=== PATIENT | male | born 1985 | race African-American/Black ===

== ENCOUNTER 2021-07-29 08:09 | Emergency (ER) | payer SELFPAY ==
[~2021-07-29] VITALS: Ht 175.3 cm; Wt 68.0 kg
--- NOTE | 2021-07-29 08:20 | NUR ---
the [id number] overdose [place] unknown drug, narcan 4mg given on scene IVP. The patient is alert to self. In room air. Respiration regular and unlabored. Attached to the monitor. Warm blanket provided for comfort. Will continue to monitor the patient
--- NOTE | 2021-07-29 08:34 | NUR ---
The phlebatomist at the bedside
[2021-07-29 08:42] LABS: BASOPHILS % (AUTO) 0.2 % (0.0-2.0); EOSINOPHILS % (AUTO) 0.3 % (0.0-6.0); HEMATOCRIT 44 % (39-51); HEMOGLOBIN 14.1 g/dL (13.5-17.5); LYMPHOCYTES % (AUTO) 4.5 % (20.0-44.0); MEAN CORPUSCULAR HGB CONC 32 g/dl (31.0-36.0); MEAN CORPUSCULAR VOLUME 92 fL (80-96); MONOCYTES # (AUTO) 0.8 K/uL (0.1-1.30); MONOCYTES % (AUTO) 3.6 % (2.0-12.0); NEUTROPHILS # (AUTO) 19.8 K/uL (1.8-8.9); NEUTROPHILS % (AUTO) 91.4 % (43.0-81.0); PLATELET COUNT (AUTO) 254 K/uL (150-450); RED BLOOD CELL COUNT(AUTO) 4.74 MIL/uL (4.5-6.0); WHITE BLOOD COUNT (AUTO) 21.6 K/uL (4.3-11.0)
--- NOTE | 2021-07-29 08:55 | NUR ---
The patient does not want to give urine at this time. Willencourage again later.
[2021-07-29 08:56] LABS: ACETAMINOPHEN < 0 ug/ml (10-30); ALANINE AMINOTRANSFERASE 64 U/L (12-78); ALCOHOL, BLOOD < 3 mg/dL (0-0); ALKALINE PHOSPHATASE 111 U/L (46-116); ASPARTATE AMINOTRANSFERASE 114 U/L (15-37); BILIRUBIN,DIRECT 0.2 mg/dL (0.0-0.2); BILIRUBIN,TOTAL 0.4 mg/dL (0.2-1.0); CALCIUM, SERUM 8.8 mg/dL (8.5-10.1); CARBON DIOXIDE 27 mmol/L (21-32); CHLORIDE 108 mmol/L (98-107); CREATININE 1.9 mg/dL (0.6-1.3); GLUCOSE 92 mg/dL (74-106); SODIUM SERUM 147 mmol/L (136-145); TOTAL PROTEIN, SERUM 7.7 g/dL (6.4-8.2); UREA NITROGEN, BLOOD 25 mg/dL (7-18)
[2021-07-29 08:57] LABS: POTASSIUM 5.3 mmol/L (3.5-5.1)
[2021-07-29] MEDS ORDERED: PIPERACILLIN /TAZOBACTAM 3.375 G in IV D5W 50 ML IV ONE (10:00)
--- NOTE | 2021-07-29 12:54 | NUR ---
THE PATIENT SLEEPING IN BED. RESPONSIVE TO VERBAL STIMULI. RESPIRATION REGULAR AND UNLABORED. PATIENT IS IN NO APPARENT DISTRESS. REMAINS ATTACHED TO A MONITOR. WILL CONTINUE TO MONITOR THE PATIENT.
--- NOTE | 2021-07-29 14:47 | NUR ---
THE PATIENT SLEEPING. RESPIRATION EVEN AND UNLABORED. IN NO APPARENT DISTRESS. THE PATIENT IS RESPONSIVE TO VERBAL STIMULI. WILL CONTINUE TO MONITOR THE PATIENT.
--- NOTE | 2021-07-29 15:40 | NUR ---
"SS note: SS requested for overdose and homelessness. Pt is a 35-year-old, male. SW met with pt at his bedside in the emergency department. Pt was unarousable. Pt appeared well-groomed. Per chart, pt was brought in by ambulance on 07/29/21 for overdose. SW was unable to interview pt or assess the pt's need for community resources. SW notified TERRI Small that homeless resources and waiver would be filed in the pt's chart for follow up at a later time by ED cruise staff member. No further SS intervention at this time, however, SS will remain available as needed. RESOURCES FILED: Year-round shelters: [facility] [place] [address] [place] [address] ; [facility] [place] [address] [place] [address]; [facility] [id number] [facility]. [facility] [address] SPA 4 | [facility] [place] Provider: [facility] Serve Address: [address], [address] # of Beds: 48 Population Served: [facility] Provider: First to Serve Address: [address] [facility], [address] # of Beds: 73 Population Served: [facility] 6 | [facility] Provider: Home at Last Address: [address] [facility], [address] # of Beds: 63 Population Served: [facility] 3 | [facility] Provider: [facility] [place] Address: [address] [facility], [address] # of Beds: 75 Population Served: [facility] SPA 8 | [facility] Provider: [facility] [place] Address: [address] [facility], [address] # of Beds: 80 Population Served: [facility] SPA 1 | [facility] Provider: [facility] [place] Address: [address] [address], [address] # of Beds: 85 Population Served: [facility] SPA 2 | [facility] Provider: Magdalena ryan [facility] Address: Confidential (please call for location) # of Beds: 52 Population Served: [facility] SPA 4 | [facility] Provider: Jayleen Kaur Address: [address], [address] # of Beds: 49 Population Served: [facility] Provider: First To Serve Address: [address] [place] [address], [address] # of Beds: 27 Population Served: [facility] Hygiene: [facility]: [address] [facility] ; [facility] [facility] [address] [facility] ; [facility] [address] [facility] . Food Resources: [place] [facility] at [facility]- [address] [facility]; Meet Each Need with Dignity ([facility]) [address] [facility]; [facility] [address] [facility]; [facility] [address] [facility]. Mental Health resources provided: [facility] [address] [place], [place] [id number] ; [facility] [place] [address] [facility] [address], [place] [address] ; Shaye Segura [facility] [address] [place] [address] ; [facility] [address] [place], [place] [id number] Healthcare Clinics: [facility] [address] [address] [place]. [place] ; [facility] [address] [facility] [address] [place] [address]; [facility] [address] [place] [address]. [place] [phone] Counseling--Outpatient [facility] [address] [facility] [address] [place], [place] [address] (Specializes in in-depth psychotherapy for emotional distress: anxiety, depression, interpersonal conflicts, life transitions, childhood abuse) PSYCHIATRIC OUTPATIENT SERVICES [facility] Partial Hospitalization and Intensive Outpatient Program (Managed Care and [place] Only) [address] [facility] [id number] [facility] Partial Hospitalization and Outpatient Program [address] [place], [place] [id number] [facility] Partial Hospitalization and Outpatient Program [address] [facility] [place], [place] [id number] [facility] [place] [facility] [address] [facility] [address] [place], [place] [address] [facility] Partial Hospitalization and Outpatient Program [address] [place], [place] [phone] Substance use resources provided included: [facility] Substance Abuse Self-Helpline (SAS) ; [facility] [address] [facility]. [place] [address] ; [facility] [address] [facility] [address] ; [facility] [address] [facility] [address] ; [facility] Treatment [facility] [address] [facility] [address] ; [facility] [address] [facility] [address] ; [facility] [place]; [facility] [place]; [place] [facility] [place]; Alcoholics Anonymous -SFV"
--- NOTE | 2021-07-29 16:45 | NUR ---
THE PATIENT SLEEPING. RESPONSIVE TO VERBAL STIMULI. WILL CONTINUE TO MONITOR THE PATIENT. BREATHING EVEN AND UNLABORED. ATTACHED TO THE MONITOR. WILL CONTINUE TO MONITOR THE PATIENT.
--- NOTE | 2021-07-29 18:33 | NUR ---
THE PATIENT IS ALERT AND ORIENTED X4. IN ROOM AIR AND DENIES SOB. RESPIRATION REGULAR AND UNLABORED. THE PATIENT HAS STABLE GAIT. WILL CONTINUE TO MONITOR THE PATIENT.
[2021-07-29 19:01] VITALS: BP 127/69
--- NOTE | 2021-07-29 19:01 | NUR ---
IV removed. Catheter intact and site benign. Pressure and 4x4 applied to site. No bleeding noted.Patient discharged to home in stable condition. Written and verbal after care instructions given. Patient verbalizes understanding of instruction.
== END 2021-07-29 19:01 | disposition home or self-care (01) ==
LOC: ER 08:11
DX: T50.901A Poisoning by unspecified drugs, medicaments and biological substances, accidental (unintentional), initial encounter (principal); Y92.89 Other specified places as the place of occurrence of the external cause
CPT/HCPCS: 36415; 71045; 80048; 80076; 80143; 80320; 85025; 96365; 99285; J2543; J7060; G0480